=== PATIENT | female | born 1995 | race American Indian/Alaskan Native ===

== ENCOUNTER 2018-12-25 12:16 | Inpatient (IN) | payer MEDICAID ==
[2018-12-25] MEDS ORDERED: BRETHINE IVP PRN (12:39)
[2018-12-25] MEDS ORDERED: SUBLIMAZE IV PRN (12:39)
[2018-12-25] MEDS ORDERED: BRETHINE SUB-Q PRN (12:39)
[2018-12-25] MEDS ORDERED: MINERAL OIL PO PRN (12:39)
[2018-12-25] MEDS ORDERED: PITOCin/NS 30 UNIT/500ML 30 UNITS/500 ML BAG IV SCH (13:00)
[2018-12-25] MEDS ORDERED: PITOCin/NS 20 UNIT/1000ML DRIP 20 UNITS/1,000 ML BAG IV SCH (13:00)
[2018-12-25] MEDS: LACTATED RINGERS 1,000 ML IV SCH ×2 (13:00→14:26)
[2018-12-25] MEDS: STADOL IV PRN ×2 (13:05→13:15)
[2018-12-25] MEDS ORDERED: ZOFRAN ONE (13:12)
[2018-12-25 13:30] LABS: Hematocrit 33.4 % (30.3-42.9); Hemoglobin 10.7 gm/dl (10.1-14.3); Mean Corpuscular HGB Conc 32 % (30-34); Mean Corpuscular Volume 71 fl (79-97); Platelet Count 246 K/mm3 (140-440); Red Blood Count 4.69 M/mm3 (3.65-5.03); Red Cell Distribution Width 15.1 % (13.2-15.2)
[2018-12-25] MEDS ORDERED: ZOFRAN IV PRN ×2 (13:30→17:07)
[2018-12-25 13:44] LABS: Alanine Aminotransferase 15 units/L (7-56)
[2018-12-25 13:45] LABS: Alanine Aminotransferase 16 units/L (7-56); Albumin 3.2 g/dL (3.9-5); BUN/Creatinine Ratio 18; Blood Urea Nitrogen 9 mg/dL (7-17); Calcium 9.6 mg/dL (8.4-10.2); Hemolysis Index 54
--- NOTE | 2018-12-25 13:56 | History and Physical Report ---
History of Present Illness Date of examination: 12/25/18 Date of admission: 12/25/2018 Chief complaint: Frequent painful ctxs for last couple of hours History of present illness: 23 yo, , who [facility] at 16.3 wks gestation from [facility]. Her has been complicated by Rh negative status, anxiety (currently on Prozac 60 mg daily), positive drug screen for Cannabinoid and Cocaine (06/02/18) and anemia. She presents to [facility] with reports of painful ctxs for past couple of hours, loosing mucus plug and bloody show. Reports + FM, denies LOF. Labs: O negative, HBAsg negative; RPR non-reactive; Rubella immune; varicella immune; HIV negative; 1 hr Gtt - 104. GBS, Gc/ Chlamydia cultures were collected on 12/22/18 and results pending. Past History Past Medical History: GERD, other (Anxiety; Seasonal allergies) Past Surgical History: no surgical history Family/Genetic History: hypertension Social history: , lives with family, smoking (TSH) - Obstetrical History Expected Date of Delivery: 01/15/19 Actual Gestation: 37 Week(s) 0 Day(s) : 3 Para: 1 Hx # Term Pregnancies: 1 Number of Pregnancies: 0 Spontaneous Abortions: 1 Induced : 0 Number of Living Children: 1 #1 Gender: Female year: 2 Method of Delivery: Vaginal Complications: none Medications and Allergies Allergies Allergy/AdvReac Type Severity Reaction Status Date / Time bee pollen Allergy Itching Verified 12/25/18 12:22 grass pollen Allergy Itching Verified 12/25/18 12:22 grass pollen-perennial rye, Allergy Itching Verified 12/25/18 12:22 standar ragweed pollen Allergy Itching Verified 12/25/18 12:22 tree and shrub pollen Allergy Itching Verified 12/25/18 12:22 weed pollen Allergy Itching Verified 12/25/18 12:22 Active Meds: Active Medications Butorphanol Tartrate (Stadol) 1 mg IV Q2H PRN PRN Reason: Pain, Moderate (4-6) Last Admin: 12/25/18 13:15 Dose: 1 mg Documented by: Ephedrine Sulfate (Ephedrine Sulfate) 10 mg IV Q2M PRN PRN Reason: Hypotension Fentanyl (Sublimaze) 100 mcg IV Q2H PRN PRN Reason: Labor Pain Oxytocin/Sodium Chloride (Pitocin/Ns 20 Unit/1000ml Drip) 20 units in 1,000 mls @ 125 mls/hr IV DIRECT TOMAS Lactated Ringer's (Lactated Ringers) 1,000 mls @ 125 mls/hr IV DIRECT TOMAS Last Admin: 12/25/18 13:00 Dose: 999 mls/hr Documented by: Ampicillin Sodium (Ampicillin/Ns 2 Gm/100 Ml) 2 gm in 100 mls @ 100 mls/hr IV ONCE ONE Stop: 12/25/18 14:30 Ampicillin Sodium (Ampicillin/Ns 1 Gm/50 Ml) 1 gm in 50 mls @ 100 mls/hr IV Q4HR TOMAS; Protocol Lidocaine (Xylocaine 2%) 20 ml INFILTRATI ONCE ONE Stop: 12/25/18 14:01 Mineral Oil (Mineral Oil) 30 ml PO QHS PRN PRN Reason: Constipation Ondansetron HCl (Zofran) 4 mg IV Q4H PRN PRN Reason: Nausea And Vomiting Terbutaline Sulfate (Brethine) 0.25 mg SUB-Q ONCE PRN PRN Reason: Hyperstimulation/Hypertonicity Terbutaline Sulfate (Brethine) 0.25 mg IVP ONCE PRN PRN Reason: Hyperstimulation/Hypertonicity Review of Systems All systems: negative Genitourinary: contractions (painful) - Vital Signs Vital signs: Vital Signs Pulse BP 89 166/90 12/25/18 12:27 12/25/18 12:27 Temp Pulse Resp BP Pulse Ox 67 20 142/76 12/25/18 13:31 12/25/18 13:15 12/25/18 13:31 - Physical Exam Breasts: Positive: deferred Cardiovascular: Regular rate Lungs: Positive: Normal air movement Abdomen: Positive: other (gravid) Uterus: Positive: enlarged (S=D) Extremities: Positive: normal Deep Tendon Reflex Grade: Normal +2 - Obstetrical FHR: category 1 Uterine Contraction Monitor Mode: External Cervical Dilatation: 6.5 Cervical Effacement Percentage: 95 station: -1 Uterine Contraction Frequency (min): 3-5 Uterine Contraction Pattern: Irregular Uterine Tone Measurement Phase: Resting Uterine Contraction Intensity: Moderate Results Result Diagrams: 12/25/18 12:15 Abnormal lab results 12/25/18 Range/Units 12:15 MCV 71 L (79-97) fl MCH 23 L (28-32) pg All other labs normal. Assessment and Plan - Patient Problems (1) 37 or more weeks gestation of Current Visit: Yes Status: Acute (2) Active labor at term Current Visit: Yes Status: Acute Plan to address problem: Admit to L & D GBS prophylaxis Epidural as desired Anticipate (3) Rh negative status during in third trimester Current Visit: Yes Status: Acute Plan to address problem: Rh protocol PP per policy
[2018-12-25] MEDS ORDERED: AMPICILLIN/NS 2 GM/100 ML 2 GM/100 ML BAG IV ONE (14:00)
[2018-12-25] MEDS ORDERED: XYLOCAINE 2% INFILTRATI ONE (14:00)
[2018-12-25 14:26] LABS: Uric Acid 3.6 mg/dL (3.5-7.6)
[2018-12-25 14:28] LABS: Amphetamine Screen,Urine PRESUMPTIVE NEGATIVE; Benzodiazepines Screen,Urine PRESUMPTIVE NEGATIVE; Methadone Screen,Urine PRESUMPTIVE NEGATIVE; Opiate Screen,Urine PRESUMPTIVE NEGATIVE
[2018-12-25 14:32] LABS: Mucus,Urine FEW /HPF
[2018-12-25] MEDS ORDERED: NARCAN 2 MG/2 ML IV PRN (14:41)
[2018-12-25 14:42] LABS: Cannabinoid Screen,Urine PRESUMPTIVE POSITIVE; Cocaine Screen,Urine PRESUMPTIVE POSITIVE
[2018-12-25 15:00] LABS: Bilirubin,Urine NEG (Negative); Blood,Urine LG (Negative); Color,Urine Yellow (Yellow); Protein,Urine <15 mg/dL mg/dL (Negative); Urobilinogen,Urine < 2.0 mg/dL (<2.0)
[2018-12-25] MEDS ORDERED: fentaNYL-BUPIV 2 MCG/ML-0.125% 200 MCG/100 ML BAG EPIDURAL SCH (15:00)
[2018-12-25] MEDS ORDERED: MARCAINE 0.25% INFILTRATI ONE (15:26)
--- NOTE | 2018-12-25 15:53 | Anesthesia Consultation ---
Anesthesia Consult and Med Hx Date of service: 12/25/18 - Airway Anesthetic Teeth Evaluation: Good ROM Head & Neck: Adequate Mental/Hyoid Distance: Adequate Mallampati Class: Class II Intubation Access Assessment: Probably Good - Cardiac Exam Cardiac Exam: RRR - Pre-Operative Health Status ASA Pre-Surgery Classification: ASA2 Proposed Anesthetic Plan: Epidural - Pulmonary Hx Smoking: Yes (1/2pk x 2yrs) Hx Asthma: No Hx Respiratory Symptoms: No SOB: No COPD: No Home Oxygen Therapy: No Hx Pneumonia: No Hx Sleep Apnea: No - Cardiovascular System Hx Hypertension: No Hx Coronary Artery Disease: No Hx Heart Attack/AMI: No Hx Angina: No Hx Percutaneous Transluminal Coronary Angioplasty (PTCA): No Hx Cardia Arrhythmia: No Hx Pacemaker: No Hx Internal Defibrillator: No Hx Valvular Heart Disease: No Hx Heart Murmur: No Hx Peripheral Vascular Disease: No - Central Nervous System Hx Neuromuscular Disorder: No Hx Seizures: No CVA: No Hx Back Pain: No Hx Psychiatric Problems: Yes (Anxiety and depressing during this IUP, no current meds) - Gastrointestinal Hx Ulcer: No Hx Gastroesophageal Reflux Disease: Yes - Endocrine Hx Renal Disease: No Hx End Stage Renal Disease: No Hx Cirrhosis: No Hx Liver Disease: No Hx Insulin Dependent Diabetes: No Hx Non-Insulin Dependent Diabetes: No Hx Thyroid Disease: No Hx Hypothyroidism: No Hx Hyperthyroidism: No - Hematic Hx Anemia: No Hx Sickle Cell Disease: No - Other Systems Hx Alcohol Use: No Hx Substance Use: Yes (positive drug screen for Cocaine, Cannabinoid) Hx Cancer: No Hx Obesity: No
[2018-12-25] MEDS ORDERED: PHENERGAN PR PRN (17:07)
[2018-12-25] MEDS ORDERED: LANSINOH TP PRN (17:07)
[2018-12-25] MEDS ORDERED: PHENERGAN PO PRN (17:07)
[2018-12-25] MEDS ORDERED: TUCKS PAD TP PRN (17:07)
[2018-12-25] MEDS ORDERED: MILK OF MAGNESIA PO PRN (17:07)
[2018-12-25] MEDS ORDERED: DULCOLAX PR PRN (17:07)
[2018-12-25] MEDS ORDERED: BENADRYL PO PRN (17:07)
--- NOTE | 2018-12-25 17:25 | Procedure Note ---
OB Delivery Note - Delivery Date of Delivery: 12/25/18 (1651) Surgeon: KUNAL SANCHEZ (CNM) Estimated blood loss: other (50cc) - Vaginal Delivery presentation: vertex Delivery position: OA (SYD) Intrapartum events: other(please specify) (Born En Caul) Delivery induction: none Delivery monitor: external FHT, external uterine Route of delivery: Delivery placenta: spontaneous (1656) Delivery cord: nuchal cord (x2), 3 umbilical vessels Episiotomy: none Delivery laceration: none Anesthesia: epidural Delivery comments: of viable, alert male infant delivered en caul. Amniotic sac punctured, nuchal cord x 2 around neck, reduced at perineum. Cried immediately after stimulation and placed to maternal abdomen. Cord double clamped and cut by FOB after cessation of pulsation. Cord blood collected per policy for O negative maternal blood type. Placenta spontaneously delivered, brooks, disposed per hospital policy. Perineum intact. Fundus firm @ U-2, hemostasis maintained. Mother and baby stable, safe and bonding well. - Infant A at 1 minute: 8 at 5 minutes: 9 Infant Gender: Male (Weight: 3008 gms (6lbs 10 ozs), 18.5 inches)
[2018-12-25] MEDS ORDERED: SODIUM CHLORIDE FLUSH SYRINGE 10 ML IV NR (18:00)
[2018-12-25] MEDS ORDERED: AMPICILLIN/NS 1 GM/50 ML 1 GM/50 ML BAG IV SCH (18:00)
[2018-12-25] MEDS: IBUPROFEN PO SCH (21:04)
[2018-12-25] MEDS: COLACE PO SCH (21:04)
[2018-12-25] MEDS: FEOSOL PO SCH (21:04)
[2018-12-26] MEDS: IBUPROFEN PO SCH ×3 (03:11→16:47)
[2018-12-26 05:18] LABS: Hematocrit 27.5 % (30.3-42.9); Hemoglobin 8.9 gm/dl (10.1-14.3)
[2018-12-26] MEDS: PERCOCET 5/325 PO PRN (08:23)
[2018-12-26] MEDS: COLACE PO SCH ×2 (09:45→21:14)
[2018-12-26] MEDS: FEOSOL PO SCH ×3 (09:45→21:14)
[2018-12-26] MEDS: PRENATAL VITAMIN PO SCH (09:45)
--- NOTE | 2018-12-26 10:48 | Progress Note ---
Assessment and Plan - Patient Problems (1) Status post normal vaginal delivery Current Visit: Yes Status: Acute Plan to address problem: PPD 1 - unstable Continue routine orders Encouraged ambulation with assistance, as indicated Anticipate discharge in 24 hours, if stable (2) Anemia due to blood loss, acute Current Visit: Yes Status: Acute Plan to address problem: Symptomatic - mild dizziness w/ambulation, fatigue Continue iron therapy Repeat H&H in 12 hours Anticipate discharge in 24 hours, if stable (3) Rh negative status during in third trimester Current Visit: Yes Status: Acute Plan to address problem: RhoGam given Subjective - Subjective Date of service: 12/26/18 Principal diagnosis: PPD #1; s/p Interval history: see H&P and OB Delivery Procedure Note Patient reports: appetite normal, voiding normally, dizzy ambulation, pain well controlled, ambulating normally, other (reports fatigue) : doing well, bottle feeding Objective - Vital Signs Latest vital signs: Vital Signs Temp Pulse Resp BP BP Pulse Ox 12/26/18 07:59 97.7 F 64 18 104/54 12/26/18 04:04 98.7 F 68 18 110/53 96 12/25/18 23:45 99.0 F 62 16 109/59 100 12/25/18 18:52 98.5 F 72 16 116/67 99 12/25/18 18:10 61 98 12/25/18 18:09 62 110/53 12/25/18 18:05 64 100 12/25/18 18:00 75 99 12/25/18 17:55 82 99 12/25/18 17:50 85 97 12/25/18 17:45 66 99 12/25/18 17:40 65 98 12/25/18 17:35 69 98 12/25/18 17:30 74 99 12/25/18 17:25 80 98 12/25/18 17:21 75 88 12/25/18 17:20 84 98 12/25/18 17:15 83 99 12/25/18 17:10 88 99 12/25/18 17:05 99 H 100 12/25/18 17:04 108 H 91 12/25/18 17:00 95 H 99 12/25/18 16:55 99 H 100 12/25/18 16:50 142 H 98 12/25/18 16:48 69 86 12/25/18 16:45 73 100 12/25/18 16:40 64 100 12/25/18 16:39 71 130/59 12/25/18 16:35 28 L 77 L 12/25/18 16:30 69 99 12/25/18 16:25 66 100 12/25/18 16:23 67 118/61 12/25/18 16:20 61 100 12/25/18 16:15 59 L 100 12/25/18 16:10 54 L 100 12/25/18 16:08 54 L 100/50 12/25/18 16:05 58 L 100 12/25/18 16:00 61 100 12/25/18 15:56 70 101/53 12/25/18 15:55 68 96/52 100 12/25/18 15:50 77 100 12/25/18 15:49 74 86 12/25/18 15:45 83 100 12/25/18 15:43 90 80 L 12/25/18 15:40 96 H 99 12/25/18 15:39 94 H 119/79 12/25/18 15:35 85 99 12/25/18 15:30 87 100 12/25/18 15:25 85 97 12/25/18 15:21 87 94 12/25/18 15:18 69 100 12/25/18 15:17 82 154/118 12/25/18 15:15 78 135/64 12/25/18 15:14 86 100 12/25/18 15:13 100 H 133/64 12/25/18 15:11 76 151/67 12/25/18 15:09 70 149/75 12/25/18 15:08 67 100 12/25/18 15:07 67 154/78 12/25/18 15:05 61 136/83 12/25/18 15:04 72 100 12/25/18 14:58 74 99 12/25/18 14:57 67 132/77 85 12/25/18 14:53 118 H 92 12/25/18 14:52 53 L 84 12/25/18 14:49 80 100 12/25/18 14:43 88 91 12/25/18 13:31 67 142/76 12/25/18 13:15 20 12/25/18 13:12 61 155/82 12/25/18 13:00 97.5 F L 22 12/25/18 12:32 53 L 147/85 12/25/18 12:27 89 166/90 Intake and Output 12/25/18 12/26/18 12/26/18 23:59 07:59 15:59 Intake Total 480 840 Output Total 1025 400 Balance -545 440 Intake: Oral 480 Intake, Free Water 480 360 Output: Urine 1025 400 Indwelling Catheter 225 Void 800 400 Other: Total, Intake Amount 480 Total, Output Amount 800 400 # Voids Void 1 Estimated Blood Loss 50 - Exam Abdomen: Present: normal appearance, soft Uterus: Present: normal, firm, fundal height below umbilicus Extremities: Present: normal Comments: small lochia - Labs Labs: Abnormal lab results 12/25/18 12/25/18 12/25/18 Range/Units 12:15 12:15 12:15 Hgb (10.1-14.3) gm/dl Hct (30.3-42.9) % MCV 71 L (79-97) fl MCH 23 L (28-32) pg Sodium 135 L (137-145) mmol/L Carbon Dioxide 20 L (22-30) mmol/L Creatinine 0.5 L 0.5 L (0.7-1.2) mg/dL Alkaline Phosphatase 186 H (35-129) units/L Lactate Dehydrogenase 230 H (91-180) units/L Albumin 3.2 L (3.9-5) g/dL 12/26/18 Range/Units 05:00 Hgb 8.9 L (10.1-14.3) gm/dl Hct 27.5 L (30.3-42.9) % MCV (79-97) fl MCH (28-32) pg Sodium (137-145) mmol/L Carbon Dioxide (22-30) mmol/L Creatinine (0.7-1.2) mg/dL Alkaline Phosphatase (35-129) units/L Lactate Dehydrogenase (91-180) units/L Albumin (3.9-5) g/dL
[2018-12-26 16:49] LABS: Hemoglobin 9.6 gm/dl (10.1-14.3)
[2018-12-27] MEDS: IBUPROFEN PO SCH ×3 (00:39→21:25)
[2018-12-27] MEDS: PERCOCET 5/325 PO PRN ×2 (05:45→21:24)
--- NOTE | 2018-12-27 09:19 | Discharge Summary ---
Providers - Providers Date of Admission: 12/25/18 13:39 Date of discharge: 12/27/18 (1500) Attending physician: LOS KLEIN MD 12/25/18 17:09 Consult to Magnetic Observer [CONS] Routine Reason For Exam: assistance with , SNS Primary care physician: [facility] Hospitalization Reason for admission: active labor, IUP at term Delivery: Episiotomy: none Laceration: none Other procedures: none complications: none Discharge diagnosis: IUP at term delivered, other (Anemia; Positive drug screen (TSH, Cocaine)) baby: male Hospital course: See admission H & P, OB delivery summary and PP progress notes Condition at discharge: Stable Disposition: DC-01 TO HOME OR SELFCARE - Discharge Diagnoses (1) 37 or more weeks gestation of Status: Acute (2) Active labor at term Status: Acute (3) Rh negative status during in third trimester Status: Acute (4) Positive urine drug screen Status: Acute Plan - Discharge Medications Prescriptions: Ferrous Sulfate [Feosol 325 MG tab] 325 mg PO TID 30 Days #90 tablet - Provider Discharge Summary Activity: routine, no sex for 6 weeks, no heavy lifting 4 weeks, no strenuous exercise Diet: other (Iron rich foods) Instructions: routine Additional instructions: [] Smoking cessation referral if applicable(refer to patient education folder for contact #) [] Refer to [facility] Booklet Call your doctor immediately for: * Fever > 100.5 * Heavy vaginal bleeding ( >1 pad per hour) * Severe persistent headache * Shortness of breath * Reddened, hot, painful area to leg or breast * Drainage or odor from incision. * Increase iron rich foods into diet and continue daily oral iron supplementation as ordered - Follow up plan Follow up: PRIMARY CAREMD [Primary Care Provider] - 6 Weeks
[2018-12-27] MEDS: PRENATAL VITAMIN PO SCH (09:57)
[2018-12-27] MEDS: COLACE PO SCH ×2 (09:57→21:24)
[2018-12-27] MEDS: FEOSOL PO SCH ×2 (09:57→21:24)
[2018-12-28] MEDS: PERCOCET 5/325 PO PRN ×3 (05:20→21:59)
[2018-12-28] MEDS: IBUPROFEN PO SCH ×3 (05:23→21:58)
[2018-12-28] MEDS: COLACE PO SCH ×2 (10:39→21:58)
[2018-12-28] MEDS: FEOSOL PO SCH ×3 (10:39→21:58)
[2018-12-28] MEDS: PRENATAL VITAMIN PO SCH (10:39)
--- NOTE | 2018-12-28 13:25 | Consultation ---
History of Present Illness - Reason for Consult Consult date: 12/28/18 Reason for consult: Initial Psychiatric Evaluation - Chief Complaint Chief complaint: " I had my baby" - History of Present Psychiatric Illness Patient is an female 23 yo, , [facility] 16.3 wks [facility] from [facility]. Her has been complicated by Rh negative status, anxiety (currently on Prozac 60 mg daily), positive drug screen for Cannabis and Cocaine (06/02/18) and anemia. T jeannette the patient is cooperative but anxious during the assessment. Patient has a PPHx of MDD and RYAN. Prior to given /during patient was diagnosed with MDD and RYAN. Per patient she was treated with Prozac and Zoloft, which were both ineffective. In August 2018, patient discontinued both medications due to drowsiness/inability to care for toddler. She states, throughout her she continued to cope with depression and anxiety. She endorses decrease energy, decrease sleep, decrease appetite, lack of motivation, and anhedonia. She denies mood fluctuations. Also she denies SI/HI's, A/VH's and delusions. Current Psychiatric Medication: Prozac 60mg po QAM, Zoloft 25mg po QAM. Last compliant in August 2018. Reports that medication was ineffective. Past Psychiatric History: MDD ( 06/2018) RYAN (06/2018); 3 previous inpatient psychiatric hospitalizations ( [facility], 2 outside the [facility]); outpatient psychiatrist - Chantelle Colorado in [place], [place].; 2 previous suicide attempts ( Age 12, 15), Last attempt age 15. Past Medication Trials: " just Prozac and Zoloft." History of drug/alcohol abuse: Marijuana - " 1 joint daily," last use- " about 1 week ago," first use- "age 17"; Cocaine- " I don't use cocaine. Maybe my marijuana was laced with cocaine without my knowledge or the 2 substances touched prior to me buying the marijuana." UDS + marijuana and cocaine. History of abuse trauma/abuse: Patient denies trauma; Patient denies sexual, physical, and mental abuse. Social History: Some college; Employed- [employer]; lives with father, younger brother, daughter, and ; Legal issues- Baby in [facility] due to + UDS. Family History of Psychiatric Illness and Substance Abuse: Patient denies. Medications and Allergies Allergies Allergy/AdvReac Type Severity Reaction Status Date / Time bee pollen Allergy Itching Verified 12/25/18 12:22 grass pollen Allergy Itching Verified 12/25/18 12:22 grass pollen-perennial rye, Allergy Itching Verified 12/25/18 12:22 standar ragweed pollen Allergy Itching Verified 12/25/18 12:22 tree and shrub pollen Allergy Itching Verified 12/25/18 12:22 weed pollen Allergy Itching Verified 12/25/18 12:22 Home Medications Medication Instructions Recorded Confirmed Last Taken Type Ferrous Sulfate [Feosol 325 MG tab] 1 tab PO DAILY 12/25/18 12/25/18 Unknown History Vit-Fe Fumar-FA [ 1 tab PO QDAY 12/25/18 12/25/18 Unknown History Vitamin] Ferrous Sulfate [Feosol 325 MG tab] 325 mg PO TID 30 Days #90 tablet 12/27/18 Unknown Rx Active Meds: Active Medications Bisacodyl (Dulcolax) 10 mg IA BID PRN PRN Reason: Constipation Diphenhydramine HCl (Benadryl) 25 mg PO Q6H PRN PRN Reason: Itching Last Admin: 12/25/18 21:04 Dose: 25 mg Documented by: Docusate Sodium (Colace) 100 mg PO BID [facility] Last Admin: 12/28/18 10:39 Dose: 100 mg Documented by: Ferrous Sulfate (Feosol) 325 mg PO TID [facility] Last Admin: 12/28/18 10:39 Dose: 325 mg Documented by: Ibuprofen (Ibuprofen) 600 mg PO Q6H [facility] Last Admin: 12/28/18 05:23 Dose: 600 mg Documented by: Magnesium Hydroxide (Milk Of Magnesia) 30 ml PO HS PRN PRN Reason: Constipation Multi-Ingredient Ointment (Lansinoh) 1 applic TP PRN PRN PRN Reason: Sore Nipples Multivitamins/Iron/Calcium ( Vitamin) 1 each PO QDAY [facility] Last Admin: 12/28/18 10:39 Dose: 1 each Documented by: Ondansetron HCl (Zofran) 4 mg IV Q8H PRN PRN Reason: Nausea And Vomiting Oxycodone/Acetaminophen (Percocet 5/325) 1 tab PO Q6H PRN PRN Reason: Pain, Moderate (4-6) Last Admin: 12/28/18 05:20 Dose: 1 tab Documented by: Promethazine HCl (Phenergan) 25 mg IA Q6H PRN PRN Reason: Nausea And Vomiting Promethazine HCl (Phenergan) 25 mg PO Q6H PRN PRN Reason: Nausea And Vomiting Witch Nany/Glycerin (Tucks Pad) 1 each TP PRN PRN PRN Reason: Hemorrhoid/cleansing/soothing Mental Status Exam - Vital signs Last Vital Signs Temp 98.2 F 12/28/18 07:55 Pulse 78 12/28/18 07:55 Resp 20 12/28/18 07:55 BP 107/58 12/28/18 07:55 Pulse Ox 99 12/28/18 01:54 - Exam Narrative exam: Mental Status Exam Appearance: calm, cooperative Behavior: poor eye contact Speech: regular rate and tone Mood: " anxious and depressed" Affect: constricted Thought Process: organized, circumstantial Thought Content: denies SI/HI's and AVH's, and delusions Motor Activity: laying in bed bonding with baby. Cognition: A/O x 3 Insight: fair Judgment: fair Results Result Diagrams: 12/26/18 16:39 12/25/18 12:15 All other labs normal. Assessment and Plan Assessment and plan: Impression: MDD, recurrent, severe . RYAN. Today the patient is cooperative but anxious during the assessment. She endorses depressed mood and anxiety. She denies SI/HI's, A/VH's, and delusions. Recommendation/Plan: 1. Will reassess in 24 hours. 2. Start Celexa 20mg po QAM depression/anxiety. Discussed the possibility of increase suicidal ideations in reference to Celexa. Patient verbalizes full understanding. Disposition: Will reassess in 24 hours to determine the effectiveness of medication ( Celexa). Discussed patient participating in a [facility] program for drug rehabilitation. Will staff with Dr. Naila Cee.
[2018-12-28] MEDS ORDERED: celeXA PO ONE (17:00)
[2018-12-29] MEDS: FEOSOL PO SCH ×3 (00:41→14:00)
[2018-12-29] MEDS: IBUPROFEN PO SCH ×4 (03:32→12:00)
[2018-12-29] MEDS: PERCOCET 5/325 PO PRN (03:33)
[2018-12-29 09:35] VITALS: BP 112/61
[2018-12-29] MEDS ORDERED: celeXA PO SCH (10:00)
[2018-12-29] MEDS: COLACE PO SCH (10:27)
[2018-12-29] MEDS: PRENATAL VITAMIN PO SCH (10:27)
--- NOTE | 2018-12-29 11:45 | Progress Note ---
Subjective - Reason for Consult Consult date: 12/29/18 Reason for consult: Psychiatry Follow-up - Chief Complaint Chief complaint: "I want to have a good family" 23 yo, , who transferred care to [facility] at 16.3 wks gestation from [facility]. Today the patient was calm and cooperative during the assessment. She is adamant that she do not use cocaine. She stated that she smoked marijuana to help with the nausea she was experiencing during her . She stated that the marijuana she smoked prior to her admission to may have been 'laced" with cocaine. She was observed bonding with her throughout the interview, She stated that she is willing to seek rehab services for her marijuana use. She denies SI/HI's and AVH's. Mental Status Exam - Vital signs Last Vital Signs Temp 98.0 F 12/29/18 08:30 Pulse 63 12/29/18 08:30 Resp 18 12/29/18 08:30 BP 112/61 12/29/18 08:30 Pulse Ox 98 12/29/18 08:30 - Exam Narrative exam: MSE: Appearance: calm, cooperative Behavior: regular eye contact Speech: regular rate and tone Mood: "okay" Affect: congruent to mood Thought Process: linear Thought Content: denies SI/HI's and AVH's Motor Activity: sitting up in bed Cognition: A/O x3 Insight: appropriate Judgment: appropriate Assessment and Plan Impression: MDD. RYAN. Cannabis Use DO. Unspecified Anxiety DO. Today the patient was calm and cooperative Recommendation/Plan: Continue Celexa 20 mg PO daily for depression/anxiety. Discussed the possible suicidality/medication induced bakari with the patient reference Celexa, she verbalized understanding. Discussed the importance to abstain from recreational drug use. The patient do not plan to breatfeed her . Dispo: The patient can follow up with [facility]) for outpatient psy services. Also, the patient will be given a referral for her local area for rehab services. Staffed with Dr. Naila Cee.
== END 2018-12-29 17:20 | disposition home or self-care (01) | DRG 775 ==
LOC: TRG 12:16 → LD 13:39 → OB 18:37
PROVIDERS: ADMIT Obstetrics & Gynecology; ATTEND Obstetrics & Gynecology
PROC: 10E0XZZ Delivery of Products of Conception, External Approach (ICD-10-PCS; principal; 2018-12-25)
PROC: 3E0R3BZ Introduction of Anesthetic Agent into Spinal Canal, Percutaneous Approach (ICD-10-PCS; 2018-12-25)
PROC: 00HU33Z Insertion of Infusion Device into Spinal Canal, Percutaneous Approach (ICD-10-PCS; 2018-12-25)
PROC: 3E0234Z Introduction of Serum, Toxoid and Vaccine into Muscle, Percutaneous Approach (ICD-10-PCS; 2018-12-26)
DX: O99.344 Other mental disorders complicating childbirth (principal); O99.324 Drug use complicating childbirth; O99.334 Smoking (tobacco) complicating childbirth; O99.02 Anemia complicating childbirth; O99.62 Diseases of the digestive system complicating childbirth; O69.81X0 Labor and delivery complicated by cord around neck, without compression, not applicable or unspecified; O26.893 Other specified pregnancy related conditions, third trimester; F12.90 Cannabis use, unspecified, uncomplicated; F14.90 Cocaine use, unspecified, uncomplicated; D62 Acute posthemorrhagic anemia; F17.210 Nicotine dependence, cigarettes, uncomplicated; F33.2 Major depressive disorder, recurrent severe without psychotic features; K21.9 Gastro-esophageal reflux disease without esophagitis; F41.1 Generalized anxiety disorder; Z3A.37 37 weeks gestation of pregnancy; Z37.0 Single live birth; Z67.41 Type O blood, Rh negative
CPT/HCPCS: 36415; 80053; 80307; 81001; 82565; 83615; 84450; 84460; 84550; 85014; 85018; 85027; 85461; 86592; 86850; 86900; 86901; 90471; G0378; J0290; J0595; J2405; J2590; J2790; J3010; J7120